=== PATIENT | female | born 1985 | race Caucasian/White ===

== ENCOUNTER → 2021-06-05 | Outpatient (CLI) | payer OTHER ==
[~2021-06-05] MED LIST: IBU800 MG PO
== END ==
LOC: KOH-I 13:43
DX: M54.2 Cervicalgia (principal); M54.9 Dorsalgia, unspecified; R05.9 Cough, unspecified; M48.04 Spinal stenosis, thoracic region; R91.8 Other nonspecific abnormal finding of lung field
CPT/HCPCS: 71046; 72040; 72070; 72100; 73522